=== PATIENT | male | born 1960 | race Caucasian/White ===

== ENCOUNTER 2016-12-03 17:00 | Emergency (ER) | payer OTHER ==
[~2016-12-03] VITALS: Ht 185.4 cm; Wt 90.9 kg
[~2016-12-03 17:00] MED LIST: ASPI81TA2 PO; CHOL100045 PO; MULT-1063 PO; OMEG300C3 PO; OMEP20TA86 PO
[2016-12-03 17:14] VITALS: BP 156/96; PULSE 81; RESP 16; O2SAT 98
[2016-12-03 17:42] LABS: BASOPHILS % (AUTO) 0.2 % (0-3); EOSINOPHILS % (AUTO) 1.1 % (0-5); MONOCYTES % (AUTO) 5.6 % (4-12); Mean Corpuscular Hemoglobin 30.4 pg (27.0-35.0); Mean Corpuscular Volume 87.8 fL (81-100); Platelet Count 271 bil/L (150-400)
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
[2016-12-03] MEDS ORDERED: IBUP-1827 PO (22:48)
[2016-12-03 23:10] VITALS: BP 131/88; PULSE 75; RESP 16; O2SAT 97
[2016-12-04 00:24] LABS: INR 0.95 ratio
[2016-12-04 00:30] LABS: TROPONIN T 0.01 ug/L (0.0-0.011)
== END 2016-12-03 23:12 | disposition home or self-care (01) ==
LOC: SED 17:00
DX: R55 Syncope and collapse (principal); G47.30 Sleep apnea, unspecified; V44.5XXA Car driver injured in collision with heavy transport vehicle or bus in traffic accident, initial encounter; Y93.89 Activity, other specified; Y99.8 Other external cause status; Y92.410 Unspecified street and highway as the place of occurrence of the external cause; Z87.39 Personal history of other diseases of the musculoskeletal system and connective tissue; Z87.19 Personal history of other diseases of the digestive system; Z79.82 Long term (current) use of aspirin
CPT/HCPCS: 36415; 70450; 71010; 72125; 80053; 85025; 85610; 85730; 93005; 99285; G0463

== ENCOUNTER 2017-05-08 00:13 | Day surgery (SDC) | payer OTHER ==
[~2017-05-08] VITALS: Ht 188 cm; Wt 88.5 kg
[~2017-05-08 00:13] MED LIST changes: -ASPI81TA2 PO; -CHOL100045 PO; +CHOL10008 PO; +FISH12002 PO; -MULT-1063 PO; +MULT-896 PO; -OMEG300C3 PO; +OMEP20CA11 PO; -OMEP20TA86 PO
[2017-05-08] MEDS ORDERED: Lactated Ringer's 1,000 ML IV ONE (06:00)
[2017-05-08] MEDS ORDERED: fentaNYL-PF 50 mCg/mL 2 mL Inj IVPUSH PRN (06:00)
[2017-05-08] MEDS ORDERED: Sodium Chloride LOK Flush 10 mL Syringe IV PRN (06:00)
[2017-05-08] MEDS ORDERED: 0.9% Sodium Chloride 1,000 ML IV SCH (06:00)
[2017-05-08 12:54] VITALS: BP 115/77; PULSE 65; O2SAT 95
[2017-05-08] MEDS ORDERED: ASPI325T32 PO (12:57)
[2017-05-08 13:44] VITALS: BP 112/82; PULSE 79; RESP 14; O2SAT 94
[2017-05-08 13:51] VITALS: BP 114/73; PULSE 97; RESP 16; O2SAT 94
--- NOTE | 2017-05-08 14:28 | ENDO ---
[address] [address] ENDOSCOPY PROCEDURE PATIENT: NOAH CLEMENTE : 1960 MR#: [id number] ADMIT: 05/08/2017 JOB ID: [id number] PREPROCEDURE DIAGNOSIS: Gastroesophageal reflux disease. POSTPROCEDURE DIAGNOSIS: Gastroesophageal reflux disease. Grade 2 esophagogastric flap valve. PROCEDURE: Esophagogastroduodenoscopy with biopsies. ENDOSCOPIST: Darwin Esqueda MD MEDICATIONS: Versed 7 mg, fentanyl 100 mcg. INDICATION: The patient is a 56-year-old man who has had longstanding gastroesophageal reflux disease with retrosternal burning discomfort and belching. His symptoms are well controlled on daily omeprazole but he is markedly symptomatic if he stays off that medication. After discussion of the risks and benefits, he agreed to proceed with esophagogastroduodenoscopy. FINDINGS: There was a grade 2 esophagogastric flap valve but no evidence of hiatal hernia. The EG junction was present at 42 cm from the incisors. There was no evidence of Olmstead's esophagus. There was no gastritis. In the second portion of the duodenum, there was a small 7-8 mm yellowish lesion which looked like a cholesterol deposit. Attempts were made to biopsy this area, but there was too much duodenal movement to provide a safe window for biopsy, so that was aborted. DESCRIPTION OF PROCEDURE: A procedural sedation was achieved. A bite block was placed. Prior to the procedure he completed a lidocaine swallow. He was connected to hemodynamic monitoring, pulse oximetry, capnography. After procedural time-out, the GIF H 180 J gastroscope was inserted and passed under visualization to the second portion of the duodenum. There was a yellowish deposit in the wall of the duodenum laterally which looked like a cholesterol deposit. Attempts were made to biopsy this area but he had a lot of motion of this area and it did not look safe to biopsy so that was ultimately aborted. There was no other duodenal abnormality. The pylorus was normal. There was no gastritis, no gastric ulcers. Retroflexion revealed a grade 2 esophagogastric flap valve. The EG junction was present at 42 cm from the incisors, which correlated with the diaphragmatic pinchcock, so there was no hiatal hernia. The esophagus was normal. A biopsy was obtained from the EG junction with cold forceps and sent for permanent pathology to rule out Olmstead's esophagus, although that was not suspected clinically. The scope was withdrawn and the procedure terminated. RECOMMENDATIONS: Recommend continuing current medications. Biopsy results will be mailed to the patient.
--- NOTE | 2017-05-13 13:13 | PATH ---
SURGICAL PATHOLOGY Attending Physician:Jn Graham CASE STATUS: Signed Out PATIENT NAME: NOAH CLEMENTE PID: [id number] : 1960 DATE COLLECTED:05/08/2017 00:00 SPECIMEN: Esophagus, Biopsy CLINICAL HISTORY: 1). DISTAL ESOPHAGUS FINAL DIAGNOSIS: 1.DISTAL ESOPHAGUS BIOPSY: SQUAMOUS MUCOSA WITH NO DIAGNOSTIC ALTERATIONS. Negative for intestinal/Olmstead' s metaplasia. Negative for dysplasia and malignancy. [id number] GROSS DESCRIPTION: The specimen is received in one formalin filled container labeled with the patient's name, sublabeled "distal esophagus" and consists of a 0.1 x 0.1 x 0.1 CM portion of tissue which is entirely submitted in one cassette. 05/10/2017DC MICRO DESCRIPTION: See diagnosis. ICD-9 CODES: CPT CODES: 1: 04928 Electronically Signed Out Kayla Garza MD [facility] [address], [place] [address] Technical component performed at [facility], [address] [place] [address] Ave[address], [place], [address]
== END 2017-05-08 23:59 | disposition home or self-care (01) ==
LOC: END 00:13
PROVIDERS: ATTEND Student in an Organized Health Care Education/Training Program
DX: K21.9 Gastro-esophageal reflux disease without esophagitis (principal); G47.33 Obstructive sleep apnea (adult) (pediatric); K42.9 Umbilical hernia without obstruction or gangrene; Z87.891 Personal history of nicotine dependence
CPT/HCPCS: 43239; G0500; J2250; J3010; J7030